=== PATIENT | female | born 2000 | race Caucasian/White ===

== ENCOUNTER 2020-11-03 11:03 | Emergency (ER) | payer BC, SELFPAY ==
[2020-11-03 11:10] VITALS: BP 119/72; PULSE 86; RESP 19; TEMP 36.9; O2SAT 98; BMI 24.0
--- NOTE | 2020-11-03 11:36 | HMH.EDUTC ---
[facility] [place] Disposition Clinical Impression: Nausea & vomiting Qualifiers: Vomiting type: unspecified Vomiting Intractability: unspecified Qualified Code(s): R11.2 - Nausea with vomiting, unspecified Disposition: Home, Self-Care Condition on Discharge: Good Instructions: Nausea and Vomiting-Adult, Ondansetron, DI for COVID-19 (Suspected or Confirmed ), Coronavirus Disease 2019 Additional Instructions: *Monitor Temp, Over the counter Motrin or Tylenol as directed/as needed Tylenol every 4 hours and Motrin every 6 hours (as long as your family doctor has told you that you can take it) for fever or pain. and straight to ER if unable to lower temp less than 101.0 after medication given ? Avoid fruit juices, as these do not replace minerals and can actually increase diarrhea. ? Children and adults can use sports drinks to replenish electrolytes. Younger children and infants should use products formulated for children, like oral rehydration solutions. ? Eat food in small amounts and let your stomach recover. ? Get lots of rest. You may feel tired or weak. ? No greasy or fried foods for the next 24-48 hours BRAT diet Bananas Rice Apples and [place] ? Make sure to drink plenty of liquids ? Return if needed ? Straight to ER if any life threatening symptoms ? Zofran as prescribed ? Follow up with family doctor in the next 48-72 hours if no improvement or any worsening of symptoms Follow up IMMEDIATELY for new or worsening symptoms or no Noticeable improvement over the next 48-72 hours. 911 for difficulty breathing or swallowing You were tested for today for COVID19 your test result should be back in the next 24-48 hours, you may call to the [facility] to see if your test results are back in the next 48 hours [phone] [facility] hours are 9am-9pm You was given a handout with instructions for Self Quarantine and Self isolation for while you wait on test results and what to do if they are positive If you are positive the Health Dept will be contacting you also Prescriptions: Ondansetron [Zofran 4mg ODT] 4 mg PO TIDP PRN #10 tab PRN Reason: Nausea Transmission Status: Pending to [facility] [employer] #[id number] Referrals: Tresa Bernabe [Primary Care Provider] - As needed Forms: Work/School Release Time of Disposition: 11:43 Medical Decision Making - Kirk Inquiry Pt receiving controlled substance: No Kirk was queried for this patient: No Vital Signs: 11/03/20 11:10 Temperature 98.4 F Temperature Source Oral Pulse Rate [Right Brachial] 86 Respiratory Rate 19 Blood Pressure [Right Arm] 119/72 Blood Pressure Mean [Right Arm] 87 Blood Pressure Source [Right Arm] Automatic Cuff Blood Pressure Position [Right Arm] Sitting 02 Sat by Pulse Oximetry 98 Oxygen Delivery Method Room Air Orders (Tests/Meds): ORDERS Category Date Time Status Covid-19 Nasal PCR ([facility]) Routine Lab 11/03/20 11:20 Received Medical Decision Narrative: Patient denies [facility] [place] HPI - General Stated complaint: covid exposure,headache,vomiting Time Seen by Provider: 11/03/20 11:36 Mode of Arrival: Ambulatory Source of Information: Patient Limitations: No Limitations Description of Symptoms (Recalled from Triage Doc. by RN): PATIENT C/O HEADACHE AND VOMITING SINCE LAST NIGHT HEENT Symptoms (Recalled from RN notes): Yes Resp Symptoms (Recalled from RN notes): No Skin Symptoms (Recalled from RN notes): No MS Symptoms (Recalled from RN notes): No Functional Status (Recalled from RN notes): WNL - History of Present Illness Provider Complaint: Patient states that recently someone at work tested positive for COVID but she wasnt around her that long State that she has now had some nausea, vomiting and headache and was worried so she came in wanting to get checked out and tested for COVID - Related Data Previous Rx's Medication Instructions Recorded Ondansetron [Zofran 4mg ODT] 4 mg PO TIDP PRN #10 tab 11/03/20 Allergies Allergy/AdvRe
[2020-11-03 11:42] VITALS: BP 119/72; PULSE 86; RESP 19; TEMP 36.9; O2SAT 98
== END 2020-11-03 11:45 | disposition home or self-care (01) ==
PROVIDERS: Emergency Provider Nurse Practitioner; PCP Pediatrics
DX: Z20.822 Contact with and (suspected) exposure to COVID-19 (principal); R11.10 Vomiting, unspecified; R51.9 Headache, unspecified
CPT/HCPCS: 99202; G0463; U0003